=== PATIENT | male | born 1955 | race Caucasian/White ===

== ENCOUNTER 2021-08-19 16:45 | Emergency (ER) | payer OTHER ==
[2021-08-19 16:59] VITALS: BP 182/109; PULSE 80
== END 2021-08-19 18:43 | disposition home or self-care (01) ==
LOC: JP.ED 16:45
DX: K04.7 Periapical abscess without sinus (principal); I10 Essential (primary) hypertension; J44.9 Chronic obstructive pulmonary disease, unspecified; Z72.0 Tobacco use; Z88.0 Allergy status to penicillin; Z88.8 Allergy status to other drugs, medicaments and biological substances; Z79.899 Other long term (current) drug therapy
CPT/HCPCS: 99283

== ENCOUNTER 2022-06-07 21:36 | Observation (INO) | payer OTHER ==
[2022-06-07] MEDS ORDERED: methylPREDNISolone Sodium Succinate 125 MG/2 ML SDV IVPUSH ONE (21:45)
[2022-06-07] MEDS ORDERED: Ketorolac 30 MG/ML SDV IVPUSH ONE (21:45)
[2022-06-07] MEDS ORDERED: Albuterol/Ipratropium 3.0-0.5 MG/3 ML Neb Soln NEB ONE (21:45)
[2022-06-07] MEDS ORDERED: Sodium Chloride 0.9% 10 ML Syringe FLUSH PRN (21:45)
[2022-06-07 22:32] LABS: ESTIMATED GFR 59 mL/min (>60)
[2022-06-07 22:57] LABS: CORONAVIRUS COVID-19 NAA NEGATIVE (NEGATIVE)
[2022-06-08] MEDS ORDERED: Norepinephrine Bit/D5W Premix 4 MG in Premix Bag 1 BAG IV SCH (01:00)
[2022-06-08] MEDS ORDERED: Ondansetron 4 MG/2 ML SDV IV PRN (01:41)
[2022-06-08] MEDS ORDERED: Magnesium Hydroxide 400 MG/5 ML Susp 30 ML Cup PO PRN (01:41)
[2022-06-08] MEDS ORDERED: Ondansetron 4 MG Tab.DIS PO PRN (01:41)
[2022-06-08] MEDS ORDERED: Nicotine 14 MG/24 Hr Patch TRDERM PRN (01:41)
[2022-06-08] MEDS: Acetaminophen 325 MG Tab PO PRN ×4 (02:03→17:26)
[2022-06-08] MEDS ORDERED: Albuterol 0.083% 2.5 MG/3 ML Neb Soln NEB PRN (03:24)
[2022-06-08] MEDS: Albuterol/Ipratropium 3.0-0.5 MG/3 ML Neb Soln NEB SCH ×3 (07:34→19:33)
[2022-06-08] MEDS: Pantoprazole 40 MG Tab.CR PO SCH (08:24)
[2022-06-08] MEDS: predniSONE 20 MG Tab PO SCH (08:24)
[2022-06-08] MEDS: Apixaban 5 MG Tab PO SCH ×2 (08:25→22:28)
[2022-06-08] MEDS: Carvedilol 12.5 MG Tab PO SCH ×2 (08:25→22:28)
[2022-06-08] MEDS: DULoxetine 30 MG Cap PO SCH ×2 (08:25→22:28)
[2022-06-08] MEDS: Aspirin 81 MG Tab.EC PO SCH (08:25)
[2022-06-08] MEDS: Furosemide 20 MG Tab PO SCH (08:25)
[2022-06-08] MEDS: Lisinopril 10 MG Tab PO SCH (08:26)
[2022-06-08] MEDS: Gabapentin 400 MG Cap PO SCH ×3 (08:26→22:28)
[2022-06-08] MEDS: Benzonatate 100 MG Cap PO PRN ×2 (08:38→17:22)
[2022-06-08] MEDS ORDERED: Sodium Chloride 0.9% 1,000 ML IV SCH (11:00)
[2022-06-08] MEDS: Codeine/guaiFENesin 10-100 MG/5 ML Syrup 5 ML Cup PO PRN ×2 (11:32→17:27)
[2022-06-08] MEDS: atorvaSTATin 20 MG Tab PO SCH (22:27)
[2022-06-08] MEDS ORDERED: LORazepam 2 MG/ML SDV IV SCH (22:45)
[2022-06-08] MEDS: LORazepam 1 MG Tab PO SCH (22:52)
[2022-06-09] MEDS: Acetaminophen 325 MG Tab PO PRN (03:13)
[2022-06-09] MEDS: Albuterol/Ipratropium 3.0-0.5 MG/3 ML Neb Soln NEB SCH ×4 (03:13→19:38)
[2022-06-09] MEDS: LORazepam 1 MG Tab PO SCH ×2 (03:13→22:50)
[2022-06-09] MEDS: Pantoprazole 40 MG Tab.CR PO SCH (08:49)
[2022-06-09] MEDS: predniSONE 20 MG Tab PO SCH (08:51)
[2022-06-09] MEDS: Aspirin 81 MG Tab.EC PO SCH (08:52)
[2022-06-09] MEDS: Apixaban 5 MG Tab PO SCH ×2 (08:52→21:16)
[2022-06-09] MEDS: DULoxetine 30 MG Cap PO SCH ×2 (08:53→21:15)
[2022-06-09] MEDS: Lisinopril 10 MG Tab PO SCH (08:53)
[2022-06-09] MEDS: Furosemide 20 MG Tab PO SCH (08:53)
[2022-06-09] MEDS: Gabapentin 400 MG Cap PO SCH ×3 (08:56→21:16)
[2022-06-09] MEDS: Folic Acid 1 MG Tab PO SCH (08:56)
[2022-06-09] MEDS: Carvedilol 12.5 MG Tab PO SCH ×2 (08:57→21:14)
[2022-06-09] MEDS: Thiamine 100 MG Tab PO SCH (08:59)
[2022-06-09] MEDS ORDERED: oxyCODONE 5 MG Tab PO PRN (15:55)
[2022-06-09] MEDS: atorvaSTATin 20 MG Tab PO SCH (21:16)
[2022-06-10] MEDS: Albuterol/Ipratropium 3.0-0.5 MG/3 ML Neb Soln NEB SCH ×3 (00:53→12:37)
[2022-06-10] MEDS: LORazepam 1 MG Tab PO SCH (01:11)
[2022-06-10] MEDS: Pantoprazole 40 MG Tab.CR PO SCH (08:37)
[2022-06-10] MEDS: predniSONE 20 MG Tab PO SCH (08:42)
[2022-06-10] MEDS: Carvedilol 12.5 MG Tab PO SCH (08:47)
[2022-06-10] MEDS: Folic Acid 1 MG Tab PO SCH (08:51)
[2022-06-10] MEDS: Aspirin 81 MG Tab.EC PO SCH (08:51)
[2022-06-10] MEDS: DULoxetine 30 MG Cap PO SCH (08:51)
[2022-06-10] MEDS: Apixaban 5 MG Tab PO SCH (08:51)
[2022-06-10] MEDS: Gabapentin 400 MG Cap PO SCH (08:52)
[2022-06-10] MEDS: Thiamine 100 MG Tab PO SCH (08:52)
[2022-06-10] MEDS: Lisinopril 10 MG Tab PO SCH (08:53)
[2022-06-10] MEDS: Furosemide 20 MG Tab PO SCH (08:54)
[2022-06-10 08:55] VITALS: BP 152/105
[2022-06-10 12:04] VITALS: PULSE 77
== END 2022-06-10 12:40 | disposition home or self-care (01) ==
LOC: JP.ED 21:36 → JP.2SS 06-08 00:23 → INTOOBSV 06-08 00:23
PROVIDERS: ADMIT Internal Medicine; ATTEND Internal Medicine
DX: J10.1 Influenza due to other identified influenza virus with other respiratory manifestations (principal); J44.1 Chronic obstructive pulmonary disease with (acute) exacerbation; R07.89 Other chest pain; F17.210 Nicotine dependence, cigarettes, uncomplicated; I11.0 Hypertensive heart disease with heart failure; I50.9 Heart failure, unspecified; K21.9 Gastro-esophageal reflux disease without esophagitis; E11.9 Type 2 diabetes mellitus without complications; F41.9 Anxiety disorder, unspecified; F33.9 Major depressive disorder, recurrent, unspecified; Z79.82 Long term (current) use of aspirin; Z79.899 Other long term (current) drug therapy; Z88.0 Allergy status to penicillin; Z88.5 Allergy status to narcotic agent; Z96.659 Presence of unspecified artificial knee joint; Z98.890 Other specified postprocedural states; Z20.822 Contact with and (suspected) exposure to COVID-19
CPT/HCPCS: 0241U; 36415; 36600; 71045; 80048; 80053; 82803; 85025; 85027; 86140; 94640; 96361; 96374; 96375; 99285; A9270; G0378; J1885; J2930; J3490; J7030; J7512; J7620